=== PATIENT | female | born 1990 | race Caucasian/White ===

== ENCOUNTER 2017-03-02 08:09 | Inpatient (IN) ==
[2017-03-02] MEDS ORDERED: OXYTOCIN/LR 20 UNIT/1,000 ML BAG IV ONE ×3 (08:20→11:29)
[2017-03-02] MEDS ORDERED: LIDOCAINE 1% 50 ML VIAL ONE (08:22)
[2017-03-02] MEDS ORDERED: miSOPROStol 200 MCG TABLET ONE (08:23)
[2017-03-02] MEDS ORDERED: MEPERIDINE 50 MG/1 ML VIAL ONE (08:36)
[2017-03-02 08:53] LABS: Cord Venous Blood HCO3 22.8 MMOL/L; Cord Venous Blood PCO2 44.1 MMHG; Cord Venous Blood PO2 27.5
[2017-03-02] MEDS ORDERED: MEPERIDINE 50 MG/1 ML VIAL IV PRN (08:53)
[2017-03-02] MEDS ORDERED: ONDANSETRON 4 MG/2 ML VIAL IV PRN (08:53)
[2017-03-02] MEDS ORDERED: LACTATED RINGERS 500 ML IV PRN (08:53)
[2017-03-02] MEDS ORDERED: LACTATED RINGERS 250 ML IV ONE (08:53)
[2017-03-02] MEDS ORDERED: LACTATED RINGERS 1,000 ML IV SCH (09:00)
[2017-03-02 09:19] LABS: Basophils # 0.1 10*3/uL (0.0-0.2); Basophils % 0.4 % (0.0-0.8); Eosinophils # 0.2 10*3/uL (0.0-0.87); Eosinophils % 1.3 % (0.00-10.9); Hematocrit 27.6 VOL% (35.7-47.0); Hemoglobin 8.7 GM/DL (12.0-16.0); Immature Granulocytes % 0.5 %; Immature Granulocytes Absolute 0.07 #; Lymphocytes # 1.7 10*3/uL (1.4-4.0); Mean Corpuscular HGB Conc 31.5 GM/DL (32-36); Mean Corpuscular Hemoglobin 24 PG (27-34); Mean Corpuscular Volume 75.4 FL (87-102); Mean Platelet Volume 9.9 FL (9.6-12.0); Monocytes # 0.8 10*3/uL (0.11-0.8); Neutrophils # 10.6 10*3/uL (1.4-7.4); Neutrophils % 78.8 % (38.7-73.9); Platelet Count 259 T/CUMM (130-400); Red Blood Count 3.66 MC/CUMM (3.8-5.5); Red Cell Distribution Width 15.6 % (9.3-17.3); White Blood Count 13.4 T/CUMM (4-12)
[2017-03-02 09:48] LABS: Albumin 2.3 G/DL (3.4-5.0); Bilirubin,Total 0.5 MG/DL (0.2-1.0); Calcium 8.2 MG/DL (8.5-10.1); Potassium 3.7 MMOL/L (3.5-5.1); Total Protein 6.2 G/DL (6.4-8.3)
[2017-03-02] MEDS ORDERED: ACETAMINOPHEN/CODEINE 300-30 MG TABLET PO PRN (09:53)
[2017-03-02] MEDS ORDERED: INFLUENZA VIRUS VACCINE 0.5 ML SYRINGE IM ONE ×2 (11:07→11:30)
[2017-03-02] MEDS ORDERED: HYDROCORTISONE 2.5% RECTAL CREAM 30 GM TUBE TOP PRN (11:38)
[2017-03-02] MEDS ORDERED: MEASLES/MUMPS/RUBELLA VACCINE 0.5 ML VIAL SUBCUT ONE (11:38)
[2017-03-02] MEDS ORDERED: BENZOCAINE 20%/MENTHOL 0.5% SPRAY 56 GM CAN TOP PRN (11:38)
[2017-03-02] MEDS ORDERED: DIPH/TET/ACEL PERT BOOSTER VACCINE 0.5 ML VIAL IM ONE (11:38)
[2017-03-02] MEDS ORDERED: RHO(D) IMMUNE GLOBULIN 300 MCG SYRINGE IM ONE (11:38)
[2017-03-02] MEDS ORDERED: BISACODYL 10 MG SUPP RECTAL PRN (11:38)
[2017-03-02] MEDS ORDERED: oxyCODONE/ACETAMINOPHEN 5-325 MG TABLET PO PRN (11:38)
[2017-03-02] MEDS ORDERED: LANOLIN 50% CREAM 0.3 OZ TUBE TOP PRN (11:38)
[2017-03-02] MEDS ORDERED: ACETAMINOPHEN 325 MG TABLET PO PRN (11:38)
[2017-03-02] MEDS ORDERED: WITCH HAZEL PADS 100/JAR TOP PRN (11:38)
[2017-03-02] MEDS: IBUPROFEN 800 MG TABLET PO PRN (13:52)
[2017-03-02] MEDS: DOCUSATE SODIUM 100 MG CAPSULE PO SCH (20:36)
[2017-03-03] MEDS: oxyCODONE/ACETAMINOPHEN 5-325 MG TABLET PO PRN ×2 (00:03→12:25)
[2017-03-03 05:53] LABS: Basophils # 0.1 10*3/uL (0.0-0.2); Basophils % 0.4 % (0.0-0.8); Eosinophils # 0.2 10*3/uL (0.0-0.87); Eosinophils % 2.1 % (0.00-10.9); Hematocrit 27.4 VOL% (35.7-47.0); Hemoglobin 8.3 GM/DL (12.0-16.0); Immature Granulocytes % 0.7 %; Immature Granulocytes Absolute 0.08 #; Lymphocytes % 26.6 % (21.3-54.2); Mean Corpuscular HGB Conc 30.3 GM/DL (32-36); Mean Corpuscular Hemoglobin 23 PG (27-34); Mean Corpuscular Volume 77.4 FL (87-102); Mean Platelet Volume 10.1 FL (9.6-12.0); Monocytes # 0.8 10*3/uL (0.11-0.8); Monocytes % 6.6 % (1.7-12.7); Neutrophils # 7.3 10*3/uL (1.4-7.4); Neutrophils % 63.6 % (38.7-73.9); Platelet Count 272 T/CUMM (130-400); Red Blood Count 3.54 MC/CUMM (3.8-5.5); Red Cell Distribution Width 15.5 % (9.3-17.3); White Blood Count 11.4 T/CUMM (4-12)
[2017-03-03] MEDS: DOCUSATE SODIUM 100 MG CAPSULE PO SCH ×2 (08:31→21:20)
[2017-03-03] MEDS: FERROUS SULFATE 325 MG TABLET PO SCH ×2 (08:31→21:20)
[2017-03-03] MEDS: IBUPROFEN 800 MG TABLET PO PRN (12:25)
[2017-03-03] MEDS ORDERED: methylPREDNISolone 4 MG TABLET PO SCH ×2 (18:30)
[2017-03-03] MEDS: methylPREDNISolone 4 MG TABLET PO SCH (21:20)
[2017-03-04 07:30] VITALS: BP 109/73
[2017-03-04] MEDS: DOCUSATE SODIUM 100 MG CAPSULE PO SCH (08:08)
[2017-03-04] MEDS: oxyCODONE/ACETAMINOPHEN 5-325 MG TABLET PO PRN (08:08)
[2017-03-04] MEDS: FERROUS SULFATE 325 MG TABLET PO SCH (08:08)
[2017-03-04] MEDS: IBUPROFEN 800 MG TABLET PO PRN (08:09)
[2017-03-04] MEDS: methylPREDNISolone 4 MG TABLET PO SCH (08:10)
== END 2017-03-04 11:05 | disposition home or self-care (01) | DRG 775 ==
LOC: N.LDOUT 08:09 → N.LD 08:11 → N.OB 11:36
PROVIDERS: ADMIT Obstetrics & Gynecology; ATTEND Obstetrics & Gynecology

== ENCOUNTER 2022-02-10 18:03 | Inpatient (IN) ==
[2022-02-10 18:28] LABS: Mucus,Urine Many /LPF (Occasional); Protein,Urine 30 mg/dL (Negative); RBC,Urine 4 /HPF (0-4); Squamous Epithelial Cell,Urine Few /HPF (0-10); Urine Appearance Clear (Clear); Urine Color Yellow (Yellow); Urine Specific Gravity 1.033 (1.001-1.035)
[2022-02-10 18:29] LABS: Bilirubin,Urine Small mg/dL (Negative); Blood, Urine Negative (Negative); Glucose,Urine (UA) Negative (Negative); Ketones,Urine 40 mg/dL (Negative); Nitrite,Urine Negative (Negative)
[2022-02-10] MEDS ORDERED: LACTATED RINGERS 1,000 ML IV ONE (18:31)
[2022-02-10] MEDS ORDERED: MAGNESIUM SULF RIDER 4 GM/100 ML PREMIX IV ONE (18:40)
[2022-02-10] MEDS ORDERED: MAGNESIUM SULF DRIP 40 GM/1,000 ML ML IV SCH (19:00)
[2022-02-10] MEDS: BETAMETH SODIUM PHOS/ACETATE 30 MG/5 ML VIAL IM SCH (19:10)
[2022-02-10] MEDS: LACTATED RINGERS 1,000 ML IV SCH (19:10)
[2022-02-10] MEDS: AMPICILLIN INJ 2,000 MG in SODIUM CHLORIDE 0.9% 100 ML IV SCH (19:15)
[2022-02-10 19:41] LABS: Basophils % 0.3 % (0.0-0.8); Eosinophils % 0.4 % (0.00-10.9); Hematocrit 26.1 VOL% (35.7-47.0); Immature Granulocytes % 0.7 %; Immature Granulocytes Absolute 0.07 #; Lymphocytes # 1.8 10*3/uL (1.4-4.0); Lymphocytes % 19.3 % (21.3-54.2); Mean Corpuscular HGB Conc 30.7 GM/DL (32-36); Mean Corpuscular Volume 73.7 FL (87-102); Monocytes # 0.4 10*3/uL (0.11-0.8); Monocytes % 4.3 % (1.7-12.7); Platelet Count 341 T/CUMM (130-400); Red Blood Count 3.54 MC/CUMM (3.8-5.5); Red Cell Distribution Width 15.6 % (9.3-17.3); White Blood Count 9.5 T/CUMM (4-12)
[2022-02-10 19:58] LABS: Albumin 2.5 G/DL (3.4-5.0); Calcium 9.1 MG/DL (8.5-10.1); Osmolality,Calculated 272.1 MOS/KG (273-304); Potassium 3.5 MMOL/L (3.5-5.1); Total Protein 7.2 G/DL (6.4-8.2)
[2022-02-11] MEDS: AMPICILLIN INJ 2,000 MG in SODIUM CHLORIDE 0.9% 100 ML IV SCH ×2 (00:55→07:05)
[2022-02-11] MEDS ORDERED: TERBUTALINE 1 MG/1 ML VIAL SUBCUT ONE (02:58)
[2022-02-11] MEDS ORDERED: TERBUTALINE 1 MG/1 ML VIAL ONE (02:59)
[2022-02-11] MEDS: BETAMETH SODIUM PHOS/ACETATE 30 MG/5 ML VIAL IM SCH (06:52)
[2022-02-11] MEDS: LACTATED RINGERS 1,000 ML IV SCH (07:05)
[2022-02-11] MEDS ORDERED: MEPERIDINE 50 MG/1 ML VIAL IM PRN (09:14)
[2022-02-11] MEDS ORDERED: CARBOPROST TROMETHAMINE 250 MCG/ML AMP IM PRN (09:14)
[2022-02-11] MEDS ORDERED: miSOPROStoL 200 MCG TABLET RECTAL PRN (09:14)
[2022-02-11] MEDS ORDERED: OXYTOCIN/LR 20 UNIT/1,000 ML BAG IV ONE (09:14)
[2022-02-11] MEDS ORDERED: BUTORPHANOL 2 MG/ML VIAL IV PRN (09:14)
[2022-02-11] MEDS ORDERED: METHYLERGONOVINE 0.2 MG/1 ML AMP IM PRN (09:14)
[2022-02-11] MEDS ORDERED: ONDANSETRON 4 MG/2 ML VIAL IV PRN (09:14)
[2022-02-11] MEDS ORDERED: TRANEXAMIC ACID 1,000 MG in SODIUM CHLORIDE 0.9% 100 ML IV PRN (09:14)
[2022-02-11] MEDS ORDERED: ePHEDrine 50 MG/ML VIAL IV PRN (09:19)
[2022-02-11] MEDS ORDERED: PROMETHAZINE 25 MG/1 ML VIAL IM PRN (09:19)
[2022-02-11] MEDS ORDERED: CITRIC ACID/SODIUM CITRATE 30 ML UDCUP PO ONE (09:19)
[2022-02-11] MEDS ORDERED: diphenhydrAMINE 50 MG/1 ML VIAL IV PRN (09:19)
[2022-02-11] MEDS ORDERED: NALOXONE 0.4 MG/ML VIAL IV PRN (09:19)
[2022-02-11] MEDS ORDERED: FAMOTIDINE 20 MG/2 ML VIAL IV ONE (09:19)
[2022-02-11] MEDS ORDERED: fentaNYL 2 MCG/ROPIV 0.2% EPID 100 ML EPIDURAL SCH (09:30)
[2022-02-11] MEDS ORDERED: LACTATED RINGERS 1,000 ML IV SCH (09:30)
[2022-02-11] MEDS ORDERED: OXYTOCIN/LR 20 UNIT/1,000 ML BAG IV SCH (09:30)
[2022-02-11 12:01] LABS: Bacteria,Urine Occasional /HPF (Few); Mucus,Urine Occasional /LPF (Occasional); RBC,Urine <1 /HPF (0-4); Squamous Epithelial Cell,Urine Occasional /HPF (0-10)
[2022-02-11 12:02] LABS: Bilirubin,Urine Negative (Negative); Blood, Urine Negative (Negative); Glucose,Urine (UA) Negative (Negative); Ketones,Urine 40 mg/dL (Negative); Nitrite,Urine Negative (Negative); Protein,Urine Negative (Negative); Urine Appearance Clear (Clear); Urine Color Yellow (Yellow); Urine Urobilinogen 0.2 eU/dL (<2.0)
[2022-02-11 13:18] LABS: Cord Arterial Blood HCO3 17.9 MMOL/L
[2022-02-11 13:20] LABS: Cord Venous Blood HCO3 19.4 MMOL/L; Cord Venous Blood PCO2 41.5 MMHG; Cord Venous Blood PO2 22.1
[2022-02-11 13:23] LABS: Cord Arterial Blood HCO3 20.3 MMOL/L
[2022-02-11 13:26] LABS: Cord Venous Blood HCO3 20.9 MMOL/L; Cord Venous Blood PCO2 37.4 MMHG; Cord Venous Blood PO2 29.2
[2022-02-11] MEDS ORDERED: IBUPROFEN 800 MG TABLET PO PRN (16:02)
[2022-02-11] MEDS: DOCUSATE SODIUM 100 MG CAPSULE PO SCH (21:16)
[2022-02-11] MEDS: FERROUS SULFATE 325 MG TABLET PO SCH (21:16)
[2022-02-12 06:11] LABS: Basophils % 0.1 % (0.0-0.8); Hematocrit 21.7 VOL% (35.7-47.0); Hemoglobin 6.7 GM/DL (12.0-16.0); Immature Granulocytes % 1.5 %; Immature Granulocytes Absolute 0.32 #; Lymphocytes # 2.5 10*3/uL (1.4-4.0); Lymphocytes % 11.9 % (21.3-54.2); Mean Corpuscular HGB Conc 30.9 GM/DL (32-36); Mean Corpuscular Volume 74.8 FL (87-102); Mean Platelet Volume 10.3 FL (9.6-12.0); Monocytes # 1.4 10*3/uL (0.11-0.8); Monocytes % 6.7 % (1.7-12.7); NRBC # 0.08 10*3/uL; Neutrophils % 79.8 % (38.7-73.9); Platelet Count 272 T/CUMM (130-400); Red Cell Distribution Width 15.7 % (9.3-17.3); White Blood Count 21.1 T/CUMM (4-12)
[2022-02-12 06:40] LABS: Band Neutrophils 2 % (0-10); Lymphocytes 10 % (20-55); Total Cells Counted 100
[2022-02-12 06:41] LABS: Hypochromia 1+; Microcytosis 1+; Polychromasia Slight
[2022-02-12 06:42] LABS: Platelet Estimate Normal
[2022-02-12] MEDS ORDERED: SODIUM CHLORIDE 0.9% 1,000 ML IV PRN (07:15)
[2022-02-12] MEDS: DOCUSATE SODIUM 100 MG CAPSULE PO SCH ×2 (09:27→20:41)
[2022-02-12] MEDS: FERROUS SULFATE 325 MG TABLET PO SCH ×2 (09:27→20:41)
[2022-02-12 17:16] LABS: Hematocrit 27.1 VOL% (35.7-47.0)
[2022-02-12 17:21] LABS: Hemoglobin 8.5 GM/DL (12.0-16.0)
[2022-02-13 07:35] VITALS: BP 111/74
[2022-02-13] MEDS: DOCUSATE SODIUM 100 MG CAPSULE PO SCH (08:29)
[2022-02-13] MEDS: FERROUS SULFATE 325 MG TABLET PO SCH (08:29)
== END 2022-02-13 15:10 | disposition home or self-care (01) | DRG 807 ==
LOC: N.LDOUT 18:03 → N.LD 18:05 → N.OB 02-11 15:08
PROVIDERS: ADMIT Obstetrics & Gynecology; ATTEND Obstetrics & Gynecology